=== PATIENT | male | born 1960 | race Caucasian/White ===

== ENCOUNTER 2017-11-07 09:22 | Emergency (ER) | payer OTHER, BC ==
[~2017-11-07] VITALS: Ht 188 cm; Wt 99.5 kg
[~2017-11-07 09:22] MED LIST: AMLODIPINE BESY10 MG PO; BENICAR HCT 401 EACH PO; CRESTOR5 MG PO; CYCLOBENZAPRINE10 MG PO; FENOFIBRIC ACI135 MG PO; METOPROLOL SUCC25 MG PO; NAPROSYN500 MG PO; NIACIN ER1000 MG PO; PERCOCET 5/31 TABLET PO; VALIUM5 MG PO
[2017-11-07 14:34] VITALS: BP 132/69
== END 2017-11-07 14:35 | disposition home or self-care (01) ==
LOC: EME 09:22
PROC: 2W3LX1Z Immobilization of Right Lower Extremity using Splint (ICD-10-PCS; principal; 2017-11-07)
DX: S92.324A Nondisplaced fracture of second metatarsal bone, right foot, initial encounter for closed fracture (principal); X58.XXXA Exposure to other specified factors, initial encounter; Y99.0 Civilian activity done for income or pay; I10 Essential (primary) hypertension; F17.200 Nicotine dependence, unspecified, uncomplicated
CPT/HCPCS: 73610; 73630; 99281; 99283